=== PATIENT | female | born 1990 | race Caucasian/White ===

== ENCOUNTER 2016-10-29 21:55 | Observation (INO) | payer BC ==
--- NOTE | 2016-10-29 22:03 | EDPHY ---
H & P Stated Complaint: Mar called. BGL result today 618, Co2 7 HPI/ROS: HPI CHIEF COMPLAINT: The generalized fatigue, dry mouth, increased urination, 15 lb weight loss times 1-2 months. HISTORY OF PRESENT ILLNESS: The patient very pleasant 26-year-old female, no significant medical history does not take any daily medications, went saw her primary care doctor today Dr. Hoff, did routine blood work noticed blood sugar was over 600 and had a low bicarb referred her to the emergency room. Patient tells me that she has not been feeling well for approximately a month she has had a 15 lb weight loss increased urination during the evening and night and unable to quit for thirst very dry mouth. She denies abdominal pain chest pain shortness of breath fever or vomiting. She does complain of generalized weakness and fatigue. Past Medical History: No medical history Past Surgical History: No surgical history Social History: Denies daily use drugs alcohol tobacco products Family History: Noncontributory specifically there is no evidence of diabetes immediate family. ROS REVIEW OF SYSTEMS: A comprehensive 10 point review of systems is otherwise negative aside from elements mentioned in the history of present illness. Exam Constitutional appears well nontoxic, triage nursing summary reviewed, vital signs reviewed, awake/alert. Eyes normal conjunctivae and sclera, EOMI, PERRLA. HENT normal inspection, atraumatic, dry mucous membranes , no epistaxis, neck supple/ no meningismus, no raccoon eyes. Respiratory Slightly Tachypnic, clear to auscultation bilaterally, normal breath sounds, no respiratory distress, no wheezing. Cardiovascular rate normal, regular rhythm, no murmur, no edema, distal pulses normal. Gastrointestinal soft, non-tender, no rebound, no guarding, normal bowel sounds, no distension, no pulsatile mass. Genitourinary no CVA tenderness. Musculoskeletal no midline vertebral tenderness, full range of motion, no calf swelling, no tenderness of extremities, no meningismus, good pulses, neurovascularly intact. Skin pink, warm, & dry, no rash, skin atraumatic. Neurologic awake, alert and oriented x 3, AAOx3, moves all 4 extremities equally, motor intact, sensory intact, CN II-XII intact, normal cerebellar, normal vision, normal speech. Psychiatric normal mood/affect. Heme/Lymph/Immune no lymphadenopathy. Differential Diagnosis: includes but is not limited to in a particular order new onset diabetes, hyperglycemia, DKA, [place], electrolyte abnormality Medical Decision Making: Plan for this patient she will have an IV established will obtain blood work including blood glucose, she will be gently hydrated with normal saline 1 L of front, she will be started insulin drip she will need to be admitted to the intensive care unit for DKA. Re-evaluation: Critical Care: Total Critical Care Time Spent Managing this Patient: 65 Minutes. This time was spent Exclusively with this patient. This Care was exclusive of procedures. The Organ System/life at risk was endocrine, electrolytes, volume status This Patient was in Critical Condition because he DKA, acidosis, dehydration, electrolyte disturbance 2315: Patient's blood work resulted blood sugar over 400, anion gap, a low bicarb indicating DKA. Patient received 2 L of fluid here in the emergency room she started on insulin drip without a bolus. Spoke with Dr. Jasso hospitalist service agrees to admit the patient to the ICU. Patient's new onset diabetes, new onset DKA. She is hemodynamically stable no acute distress at this time appears well nontoxic. Safe for admission and stable for admission to ICU. Source: Patient - Personal History LMP (Females 10-55): IUD In Place Current Tetanus/Diphtheria Vaccine: Unsure Current Tetanus Diphtheria and Acellular Pertussis (TDAP): Unsure - Medical/Surgical History Hx Asthma: No Hx Chronic Respiratory Disease: No Hx Diabetes: Yes Hx Cardiac Disease: No Hx Renal Disease: No Hx Cirrhosis: No Hx Alcoholism: No Hx HIV/AIDS: No Hx Splenectomy or Spleen Trauma: No Other PMH: Anxiety. - Social History Smoking Status: Never smoked Constitutional: Initial Vital Signs Temperature (C) 36.6 C 10/29/16 21:59 Heart Rate 95 10/29/16 21:59 O2 Sat (%) 98 10/29/16 21:59 O2 Delivery Mode Room Air Allergies/Adverse Reactions: No Known Allergies Allergy (Unverified 10/29/16 22:03) Home Medications: Medication Instructions Recorded NK [No Known Home Meds] 10/29/16 Medical Decision Making - Data Points Laboratory Results: Laboratory Results 10/29/16 22:15 10/29/16 22:15 10/29/16 10/29/16 10/29/16 22:45 22:15 22:15 WBC RBC Hgb Hct MCV MCH MCHC RDW Plt Count MPV Neut % (Auto) Lymph % (Auto) Reeves % (Auto) Eos % (Auto) Baso % (Auto) Nucleat RBC Rel Count Absolute Neuts (auto) Absolute Lymphs (auto) Absolute Monos (auto) Absolute Eos (auto) Absolute Basos (auto) Absolute Nucleated RBC Immature Gran % Immature Gran # Sodium 136 mEq/L mEq/L (134-144) Potassium 3.1 mEq/L L mEq/L (3.5-5.2) Chloride 104 mEq/L mEq/L (97-110) Carbon Dioxide 8 mEq/l L* mEq/l (22-31) Anion Gap 24 mEq/L H mEq/L (8-16) BUN 10 mg/dL mg/dL (7-23) Creatinine 0.7 mg/dL mg/dL (0.6-1.0) Estimated GFR > 60 Glucose 412 mg/dL H mg/dL (70-100) Calcium 9.2 mg/dL mg/dL (8.5-10.4) Total Bilirubin 1.1 mg/dL mg/dL (0.1-1.4) Conjugated Bilirubin 0.5 mg/dL mg/dL (0.0-0.5) Unconjugated Bilirubin 0.6 mg/dL mg/dL (0.0-1.1) AST 16 IU/L IU/L (14-46) ALT 41 IU/L IU/L (9-52) Alkaline Phosphatase 247 IU/L H IU/L (38-126) Total Protein 7.5 g/dL g/dL (6.3-8.2) Albumin 5.0 g/dL g/dL (3.5-5.0) Lipase 177.0 IU/L IU/L (23-300) Beta-Hydroxybutyrate Pending Beta HCG, Qual NEGATIVE Urine Color PALE YELLOW Urine Appearance CLEAR Urine pH 6.0 (5.0-7.5) Ur Specific [place] 1.026 (1.002-1.030) Urine Protein 2+ H (NEGATIVE) Urine Ketones 2+ H (NEGATIVE) Urine Blood 1+ H (NEGATIVE) Urine Nitrate NEGATIVE (NEGATIVE) Urine Bilirubin NEGATIVE (NEGATIVE) Urine Urobilinogen NEGATIVE EU EU (0.2-1.0) Ur Leukocyte Esterase NEGATIVE (NEGATIVE) Urine RBC 1-3 /hpf /hpf (0-3) Urine WBC 1-3 /hpf /hpf (0-3) Ur Epithelial Cells TRACE /lpf /lpf (NONE-1+) Hyaline Casts 1-5 /lpf /lpf (0-1) Urine Mucus TRACE /lpf /lpf (NONE-1+) Ur Culture Indicated? NOT INDICATED (NI) Urine Glucose 3+ H (NEGATIVE) Serum Ketones Cancelled 10/29/16 22:15 WBC 11.59 10^3/uL H 10^3/uL (3.80-9.50) RBC 5.16 10^6/uL 10^6/uL (4.18-5.33) Hgb 16.5 g/dL H g/dL (12.6-16.3) Hct 45.9 % % (38.0-47.0) MCV 89.0 fL fL (81.5-99.8) MCH 32.0 pg pg (27.9-34.1) MCHC 35.9 g/dL g/dL (32.4-36.7) RDW 14.3 % % (11.5-15.2) Plt Count 240 10^3/uL 10^3/uL (150-400) MPV 10.9 fL fL (8.7-11.7) Neut % (Auto) 72.0 % % (39.3-74.2) Lymph % (Auto) 20.3 % % (15.0-45.0) Reeves % (Auto) 6.2 % % (4.5-13.0) Eos % (Auto) 0.3 % L % (0.6-7.6) Baso % (Auto) 0.5 % % (0.3-1.7) Nucleat RBC Rel Count 0.0 % % (0.0-0.2) Absolute Neuts (auto) 8.35 10^3/uL H 10^3/uL (1.70-6.50) Absolute Lymphs (auto) 2.35 10^3/uL 10^3/uL (1.00-3.00) Absolute Monos (auto) 0.72 10^3/uL 10^3/uL (0.30-0.80) Absolute Eos (auto) 0.03 10^3/uL 10^3/uL (0.03-0.40) Absolute Basos (auto) 0.06 10^3/uL 10^3/uL (0.02-0.10) Absolute Nucleated RBC 0.00 10^3/uL 10^3/uL (0-0.01) Immature Gran % 0.7 % % (0.0-1.1) Immature Gran # 0.08 10^3/uL 10^3/uL (0.00-0.10) Sodium Potassium Chloride Carbon Dioxide Anion Gap BUN Creatinine Estimated GFR Glucose Calcium Total Bilirubin Conjugated Bilirubin Unconjugated Bilirubin AST ALT Alkaline Phosphatase Total Protein Albumin Lipase Beta-Hydroxybutyrate Beta HCG, Qual Urine Color Urine Appearance Urine pH Ur Specific [place] Urine Protein Urine Ketones Urine Blood Urine Nitrate Urine Bilirubin Urine Urobilinogen Ur Leukocyte Esterase Urine RBC Urine WBC Ur Epithelial Cells Hyaline Casts Urine Mucus Ur Culture Indicated? Urine Glucose Serum Ketones Medications Given: Discontinued Medications Sodium Chloride (Ns) 1,000 mls @ 0 mls/hr IV ONCE ONE PRN Reason: Wide Open Stop: 10/29/16 22:05 Last Admin: 10/29/16 22:20 Dose: 1,000 mls Sodium Chloride (Ns) 1,000 mls @ 0 mls/hr IV ONCE ONE PRN Reason: Wide Open Stop: 10/29/16 22:42 Last Admin: 10/29/16 22:42 Dose: 1,000 mls Departure - Departure Disposition: [facility] Inpatient Acute Clinical Impression: DKA (diabetic ketoacidoses) Qualifiers: Diabetes mellitus type: type 1 Diabetes mellitus complication detail: without coma Qualified Code(s): E10.10 - Type 1 diabetes mellitus with ketoacidosis without coma Condition: Critical Referrals: Stiven Hoff, [Primary Care Provider] - As per Instructions
[2016-10-29] MEDS ORDERED: NS 1,000 ML IV ONE ×2 (22:04→22:41)
[2016-10-29 22:48] LABS: % IMMATURE GRANULYOCYTES 0.7 % (0.0-1.1); ABSOLUTE IMMATURE GRANULOCYTES 0.08 10^3/uL (0.00-0.10); ADD DIFF? NO; ADD MORPH? NO; ADD SCAN? NO; ATYPICAL LYMPHOCYTE FLAG 10 (0-99); FRAGMENT RBC FLAG 0 (0-99); HEMATOCRIT 45.9 % (38.0-47.0); HEMOGLOBIN 16.5 g/dL (12.6-16.3); LEFT SHIFT FLG 0 (0-99); LIPEMIA HEMOLYSIS FLAG 90 (0-99); MEAN CELL HEMOGLOBIN CONCENTR. 35.9 g/dL (32.4-36.7); MEAN PLATELET VOLUME 10.9 fL (8.7-11.7); PLATELET CLUMPS FLAG 0 (0-99); PLATELET COUNT 240 10^3/uL (150-400); RED BLOOD CELL COUNT 5.16 10^6/uL (4.18-5.33); RED CELL DISTRIBUTION WIDTH 14.3 % (11.5-15.2)
[2016-10-29 22:54] LABS: COLOR PALE YELLOW; LEUKOCYTE ESTERASE,URINE NEGATIVE (NEGATIVE); NITRITE,URINE NEGATIVE (NEGATIVE)
[2016-10-29 22:55] LABS: ALANINE AMINOTRANSFERASE 41 IU/L (9-52); ALKALINE PHOSPHATASE 247 IU/L (38-126); ANION GAP 24 mEq/L (8-16); ASPARTATE AMINOTRANSFERASE 16 IU/L (14-46); BILIRUBIN,TOTAL 1.1 mg/dL (0.1-1.4); BILIRUBIN-CONJUGATED 0.5 mg/dL (0.0-0.5); BILIRUBIN-UNCONJUGATED 0.6 mg/dL (0.0-1.1); CALCIUM 9.2 mg/dL (8.5-10.4); CHLORIDE 104 mEq/L (97-110); CREATININE 0.7 mg/dL (0.6-1.0); GLOMERULAR FILTRATION RATE > 60; GLUCOSE 412 mg/dL (70-100); POTASSIUM 3.1 mEq/L (3.5-5.2); SODIUM 136 mEq/L (134-144); TOTAL PROTEIN 7.5 g/dL (6.3-8.2)
[2016-10-29 22:57] LABS: CARBON DIOXIDE 8 mEq/l (22-31)
[2016-10-29 23:01] LABS: MUCUS TRACE /lpf (NONE-1+)
[2016-10-29] MEDS ORDERED: INSULIN REGULAR HUMAN 100 UNIT, COSIGN. REQUIRED 1 EA in NS 100 ML IV ONE (23:10)
[2016-10-29] MEDS ORDERED: POTASSIUM Cl (KCl) 100 ML IV ONE (23:10)
[2016-10-29] MEDS ORDERED: ONDANSETRON DISINTEGRATING 4 MG TAB PO PRN (23:41)
[2016-10-29] MEDS ORDERED: ONDANSETRON 4 MG/2 ML VIAL IVP PRN (23:41)
[2016-10-29] MEDS ORDERED: ACETAMINOPHEN 325 MG TAB PO PRN (23:41)
[2016-10-29 23:51] LABS: B-HYDROXYBUTYRATE 9.29 mmol/L (0.02-0.27)
--- NOTE | 2016-10-30 00:52 | GHP ---
[f rep st] HISTORY AND PHYSICAL Ms. Gar is a pleasant 26-year-old female with no past medical history, who presents to the e mergency department with hypoglycemia and elevated anion gap. She was feeling well until August of this year, and then some time in late August or early y she had a viral illness and since then, she has found it very difficult to go to her daily gym rou [employer]. She subsequently thereafter began developing weakness and tachypnea and dyspnea on exertion. She has also had polyuria and over the time she has had what amounts to about a 20-pound weight los s. She is fairly petite. She was 140 pounds. She was 118 this morning. Over the last 3 days, she has really found a total lack of energy and increased work of breathing. She saw a primary care physician today and they checked the blood sugar and it was 600. At that poi nt in time, she had already left primary care physician's office. They called her and she returned to the emergency department. When I speak with her, she is speaking well. She denies pain. She notes increased work of breathin g. She has a little soreness in her chest when she takes a deep breath, but otherwise is feeling re latively well. REVIEW OF SYSTEMS: Complete 10-point review of systems conducted and negative except as noted in th e HPI. PAST MEDICAL HISTORY: None. ALLERGIES: No known drug allergies. PRESCRIPTION MEDICINES: None. FAMILY HISTORY: There may be a great grandmother with diabetes. Parents are at the bedside and hea lthy. SOCIAL HISTORY: No tobacco. Rare alcohol. She works at a bank. PHYSICAL EXAMINATION: VITAL SIGNS: Presenting vitals: Temp 36.6, pulse 95, breathing 22 times a m inute, 98% on room air. Blood pressure 145/88. GENERAL: No acute distress. Thin. HEENT: Sclerae anicteric. Oropharynx clear. Mucous membranes are moist. NECK: Supple without lymphadenopathy or JVD. LUNGS: Clear to auscultation bilaterally. HEART: S1, S2. ABDOMEN: Soft, nontender, nondistended. LOWER EXTREMITIES: No edema. Calves are nontender. SKIN: Without rash. NEUROLOGIC: Grossly nonfocal. LABORATORY DATA: Sodium is 136, potassium 3.1, chloride 104, bicarb 8, BUN 10, creatinine 0.7. Her anion gap is 24, glucose is 412. Earlier today her glucose was 618. LFTs are normal other than a slightly elevated alkaline phosphatase. Beta hCG is negative. TSH earlier today was 2.05. Hemoglo bin A1c is 12.6. UA shows glucose. White count 11.6, hematocrit 46, platelets are 240,000. I disc ussed the case Dr. Molina uL of the emergency department. ASSESSMENT AND PLAN: This is a 26-year-old female who presents with diabetic ketoacidosis. 1. Diabetic ketoacidosis. This is a classic presentation of DKA. We will start her on an insulin drip and admit her to the ICU and start long-acting insulin in the morning when her anion gap is monalisa sed, and I do anticipate it will close over night. A reasonable starting insulin dose would be abou t 12 units of long-acting insulin in the morning. I did discuss the importance of good diabetes con trol and learning to manage her blood sugars. 2. Pleuritic pain. I think this is probably from long-standing tachypnea. I will not change PE wo rkup at this time. 3. Hyperkalemia. This is consistent with diabetic ketoacidosis. It will be repleted as part of he r electrolyte protocol. 4. Prophylaxis. She is low risk. Pharmacologic prophylaxis is not indicated unless in the hospita l for a prolonged period of time. 5. Hyponatremia. She had hyponatremia this afternoon. This is pseudohyponatremia. 6. Elevated alkaline phosphatase, modestly elevated. We will follow. DISPOSITION: Observation status. /[id number]/MODL
[2016-10-30] MEDS ORDERED: PROTOCOL POTASSIUM 1 DOSE MISC PRN ×2 (01:02→09:39)
[2016-10-30] MEDS ORDERED: PROTOCOL MAGNESIUM 1 DOSE IV PRN (01:02)
[2016-10-30 01:33] LABS: CHOLESTEROL 297 mg/dL (140-200); CHOLESTEROL/HDL RATIO 6.32 RATIO (1.00-4.44); HIGH DENSITY LIPOPROTEIN 47 mg/dL (40-75); MAGNESIUM 2.4 mg/dL (1.6-2.3); NON-HIGH DENSITY LIPOPROTEIN 250 mg/dL (90-129)
[2016-10-30] MEDS ORDERED: POTASSIUM CL 20 MEQ TAB PO ONE ×2 (01:34→07:00)
[2016-10-30 01:49] LABS: TRIGLYCERIDE 551 mg/dL (35-135)
[2016-10-30] MEDS ORDERED: D5W 1/2 NS W/ 20 KCl/L 1,000 ML IV SCH (02:40)
[2016-10-30] MEDS ORDERED: D50W 25 GM/50 ML SYR IVP PRN ×2 (05:45→12:38)
[2016-10-30] MEDS ORDERED: INSULIN REGULAR HUMAN 100 UNIT/ML IVP PRN (05:45)
[2016-10-30] MEDS ORDERED: INSULIN REGULAR HUMAN 100 UNIT in NS 100 ML IV SCH (05:45)
[2016-10-30 06:13] LABS: ANION GAP 8 mEq/L (8-16); CALCIUM 7.6 mg/dL (8.5-10.4); CARBON DIOXIDE 10 mEq/l (22-31); CHLORIDE 119 mEq/L (97-110); CREATININE 0.6 mg/dL (0.6-1.0); GLOMERULAR FILTRATION RATE > 60; GLUCOSE 312 mg/dL (70-100); SODIUM 137 mEq/L (134-144)
[2016-10-30 06:16] LABS: POTASSIUM 2.4 mEq/L (3.5-5.2)
[2016-10-30 10:01] LABS: ANION GAP 9 mEq/L (8-16); CALCIUM 7.7 mg/dL (8.5-10.4); CARBON DIOXIDE 12 mEq/l (22-31); CHLORIDE 119 mEq/L (97-110); CREATININE 0.5 mg/dL (0.6-1.0); GLOMERULAR FILTRATION RATE > 60; GLUCOSE 180 mg/dL (70-100); SODIUM 140 mEq/L (134-144)
[2016-10-30 10:09] LABS: POTASSIUM 2.3 mEq/L (3.5-5.2)
[2016-10-30] MEDS: POTASSIUM Cl (KCl) 100 ML IV SCH ×3 (11:02→13:08)
[2016-10-30] MEDS: INSULIN GLARGINE 100 UNITS/ML SYRINGE SC SCH (11:21)
[2016-10-30] MEDS ORDERED: POTASSIUM CL 20 MEQ/15 ML UDCUP PO ONE ×4 (13:00→21:00)
[2016-10-30 14:56] LABS: POTASSIUM 3.1 mEq/L (3.5-5.2)
[2016-10-30] MEDS: INSULIN REGULAR HUMAN 100 UNIT/ML SC SCH ×2 (18:26→21:27)
--- NOTE | 2016-10-30 18:28 | HOSPPROG ---
Hospitalist Progress Note Assessment/Plan: * DKA -gap closed, insulin drip off * DM 1 - new diagnosis -Lantus started * Critical hypokalemia -continue q6 hour checks with repletion Subjective: no new complaints. Objective: Vital Signs Temp Pulse Resp BP Pulse Ox 37.0 C 80 17 97/57 L 93 10/30/16 16:46 10/30/16 16:46 10/30/16 16:46 10/30/16 16:46 10/30/16 16:46 Laboratory Results 10/30/16 14:00 10/29/16 10/30/16 10/31/16 05:59 05:59 05:59 Intake Total 2756 2780 Output Total 2200 2600 Balance 556 180 IV insulin drip this am - transitioned to subQ insulin late morning This is my first visit with Kirsten. - Physical Exam Constitutional: no apparent distress, appears nourished, not in pain Cardiovascular: regular rate and rhythym, no murmur, rub, or gallop Respiratory: no respiratory distress, no rales or rhonchi, clear to auscultation Gastrointestinal: normoactive bowel sounds, soft, non-tender abdomen, no palpable masses Skin: no rashes or abrasions, no fluctuance, no induration Neurologic: AAOx3, sensation intact bilaterally Psychiatric: interacting appropriately, not anxious, not encephalopathic, thought process linear ICD10 Worksheet Patient Problems: Problems Problem Status Onset DKA (diabetic ketoacidoses) Acute
[2016-10-30] MEDS ORDERED: POTASSIUM CL 10 MEQ TAB PO ONE (20:09)
[2016-10-31 00:47] LABS: POTASSIUM 2.9 mEq/L (3.5-5.2)
[2016-10-31] MEDS ORDERED: POTASSIUM CL 20 MEQ TAB PO ONE (01:29)
[2016-10-31] MEDS ORDERED: POTASSIUM Cl (KCl) 100 ML IV SCH (01:30)
[2016-10-31] MEDS ORDERED: POTASSIUM CL 20 MEQ/15 ML UDCUP PO ONE (02:00)
[2016-10-31] MEDS ORDERED: POTASSIUM Cl (KCl) 40 MEQ in NS 1,000 ML IV SCH (02:30)
[2016-10-31 06:12] LABS: % IMMATURE GRANULYOCYTES 0.7 % (0.0-1.1); ABSOLUTE IMMATURE GRANULOCYTES 0.02 10^3/uL (0.00-0.10); ADD DIFF? NO; ADD MORPH? NO; ADD SCAN? NO; ATYPICAL LYMPHOCYTE FLAG 30 (0-99); FRAGMENT RBC FLAG 0 (0-99); HEMATOCRIT 34.4 % (38.0-47.0); HEMOGLOBIN 12.6 g/dL (12.6-16.3); LEFT SHIFT FLG 0 (0-99); LIPEMIA HEMOLYSIS FLAG 90 (0-99); MEAN CELL HEMOGLOBIN 32.1 pg (27.9-34.1); MEAN CELL HEMOGLOBIN CONCENTR. 36.6 g/dL (32.4-36.7); MEAN CELL VOLUME 87.5 fL (81.5-99.8); MEAN PLATELET VOLUME 10.6 fL (8.7-11.7); PLATELET CLUMPS FLAG 10 (0-99); PLATELET COUNT 146 10^3/uL (150-400); RED BLOOD CELL COUNT 3.93 10^6/uL (4.18-5.33); RED CELL DISTRIBUTION WIDTH 14.5 % (11.5-15.2)
[2016-10-31 06:44] LABS: ANION GAP 7 mEq/L (8-16); CALCIUM 8.1 mg/dL (8.5-10.4); CARBON DIOXIDE 17 mEq/l (22-31); CHLORIDE 116 mEq/L (97-110); CREATININE 0.5 mg/dL (0.6-1.0); GLOMERULAR FILTRATION RATE > 60; GLUCOSE 326 mg/dL (70-100); MAGNESIUM 2.4 mg/dL (1.6-2.3); POTASSIUM 3.8 mEq/L (3.5-5.2); SODIUM 140 mEq/L (134-144)
[2016-10-31 08:16] VITALS: BP 108/70; PULSE 96; RESP 18; TEMP 98.1; O2SAT 94
[2016-10-31] MEDS: INSULIN GLARGINE 100 UNITS/ML SYRINGE SC SCH (08:18)
[2016-10-31] MEDS: INSULIN REGULAR HUMAN 100 UNIT/ML SC SCH ×2 (08:23→12:32)
[2016-10-31] MEDS ORDERED: POTASSIUM CL 10 MEQ TAB PO ONE (08:26)
[2016-10-31 09:54] LABS: HEMOGLOBIN A1C 12.5 % (4.0-6.0)
--- NOTE | 2016-10-31 17:47 | GDS ---
[f rep st] DISCHARGE SUMMARY DISCHARGE DIAGNOSES: 1. Diabetic ketoacidosis. 2. New onset diabetes type 1. 3. Critical hypokalemia. HISTORY: The patient is a 26-year-old female who has been feeling fatigued for a few weeks. She henry d an unintentional 20 pounds weight loss. She went to see her primary care doctor and blood sugar w as found to be 600. She was sent to the emergency room. She was found to be in DKA. She was start ed on insulin drip and per DKA protocol, DKA resolved. Her hemoglobin A1c is 12.5. We initiated he r on Lantus. She had severe hypokalemia with potassiums persistently in the low 2's. This was aggr essively repeated and potassium was 3.8 at discharge. Given her new onset diabetes, she will requir e extensive education and close following with Endocrinology. We did schedule her own appointment, same day, at [facility]. She left our hospital and went immediately to their office for further care. I, therefore, did not give her any medications or prescriptions at discharge, anticip ating that that would be done in a comprehensive way at [facility] later today. DISCHARGE MEDICATIONS: Please see computer record for a full detailed list. We did have her on Mak tus 10 units subcu daily here in the hospital, but again anticipate a comprehensive plan per [facility] later today. ADDITIONAL DISCHARGE INSTRUCTIONS: Repeat CBC in 1 week as she did develop a pancytopenia throughou t this hospitalization, although that was not present on admission. Hopefully, this is just due to her acute illness and will resolve. Patient was seen and examined by me on the day of discharge. /[id number]/MODL
== END 2016-10-31 13:03 | disposition home or self-care (01) ==
LOC: INTOOBSV 23:15 → F2N 10-30 00:50
PROVIDERS: ADMIT Internal Medicine; ATTEND Internal Medicine
DX: E10.10 Type 1 diabetes mellitus with ketoacidosis without coma (principal); E87.6 Hypokalemia; D61.818 Other pancytopenia; R09.1 Pleurisy; E87.1 Hypo-osmolality and hyponatremia
CPT/HCPCS: 96361; 96374; 99291; G0378; 82947-QW; J1815